=== PATIENT | female | born 1970 | race Caucasian/White ===

== ENCOUNTER 2020-02-18 11:30 | Emergency (ER) | payer BC, SELFPAY ==
[~2020-02-18] VITALS: Ht 160 cm; Wt 80.7 kg
[2020-02-18 11:30] VITALS: BP_SYST 148
[2020-02-18 13:02] VITALS: BP_SYST 124
== END 2020-02-18 13:02 | disposition home or self-care (01) ==
LOC: SED 11:30
DX: R05 Cough (principal); I10 Essential (primary) hypertension; Z88.0 Allergy status to penicillin
CPT/HCPCS: 71045; 99283

== ENCOUNTER 2020-02-20 18:21 | Emergency (ER) | payer BC, SELFPAY ==
[~2020-02-20] VITALS: Ht 160 cm; Wt 79.8 kg
[2020-02-20 18:21] VITALS: BP_SYST 154
[2020-02-20 19:02] VITALS: BP_SYST 154
== END 2020-02-20 19:02 | disposition home or self-care (01) ==
LOC: SED 18:21
DX: U07.1 COVID-19 (principal); F41.9 Anxiety disorder, unspecified; I10 Essential (primary) hypertension; Z88.0 Allergy status to penicillin
CPT/HCPCS: 99283

== ENCOUNTER 2021-07-26 05:58 | Emergency (ER) | payer BC ==
[~2021-07-26] VITALS: Ht 160 cm; Wt 90.7 kg
--- NOTE | 2021-07-26 06:01 | NUR ---
50 YR OLD FEMALE WITH COMPLAINT OF ANXIETY AND HEART PALPITAIONS AFTER CONSUMING A FEW ALCOHOLIC BEVERAGES AT A GREEN PARTY ABOUT 10 HOURS AGO. PT REPORTS RUNNING OUT OF HER HTN MEDICATION LISINOPRIL AND FEELING HER BLOOD PRESSURE GO UP. 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 REPORT GIVEN TO TAN ALONSO.
[2021-07-26 06:05] VITALS: BP_SYST 151
--- NOTE | 2021-07-26 06:21 | NUR ---
Patient placed on cardiac monitors. States that she drank too much last night and now feels like she is having palpatations. No signs of distress or SOB, will continue to monitor.
--- NOTE | 2021-07-26 06:36 | NUR ---
Dr. Rodgers at bedside assessing patient.
[2021-07-26] MEDS ORDERED: KETOROLAC TROMETHAMINE 30 MG VIAL IVP ONE (06:45)
[2021-07-26] MEDS ORDERED: NACL 0.9% 1,000 ML IV ONE (06:45)
[2021-07-26] MEDS ORDERED: LISINOPRIL 10 MG TABLET (PRINIVIL) PO ONE (06:45)
[2021-07-26 07:07] LABS: BASOPHILS # (AUTO) 0.1 K/uL (0.0-0.2); EOSINOPHILS # (AUTO) 0.1 K/uL (0.0-0.4); EOSINOPHILS % (AUTO) 0.8 % (0.0-4.0); HEMATOCRIT 43.1 % (36-48); HEMOGLOBIN 14.4 g/dL (12.0-16.0); LYMPHOCYTES # (AUTO) 3.4 K/uL (1.0-5.5); MEAN CORPUSCULAR HEMOGLOBIN 29 pg (27-31); MEAN CORPUSCULAR HGB CONC 34 % (32-36); MEAN CORPUSCULAR VOLUME 88 fL (79.0-98.0); MONOCYTES # (AUTO) 0.7 K/uL (0.0-1.0); MONOCYTES % (AUTO) 7.1 % (1.7-9.3); NEUTROPHILS # (AUTO) 4.9 K/uL (1.8-7.7); NEUTROPHILS % (AUTO) 54.1 % (40.0-70.0); PLATELET COUNT (AUTO) 275 K/uL (130-430); RED BLOOD CELL COUNT(AUTO) 4.92 MIL/uL (4.2-6.2); RED CELL DISTRIBUTION WIDTH 13.6 % (9.0-15.0); WHITE BLOOD COUNT (AUTO) 9.1 K/uL (4.8-10.8)
--- NOTE | 2021-07-26 07:17 | NUR ---
Report given to TAN Ray
[2021-07-26 07:22] LABS: CREATININE 0.74 mg/dL (0.55-1.30); POTASSIUM 3.7 mmol/L (3.5-5.1)
[2021-07-26 07:28] LABS: ALBUMIN 3.5 g/dL (3.4-4.8); TOTAL BILIRUBIN 0.1 mg/dL (0.0-1.0)
--- NOTE | 2021-07-26 07:54 | NUR ---
a/ox4 vss, pt stated she forgot to give urine, stated she feels better," ready to go home" is outside waiting.
--- NOTE | 2021-07-26 08:24 | NUR ---
a/ox4 vss verbalized understanding ,all questions answered , ambulated with steady gait.
== END 2021-07-26 08:24 | disposition home or self-care (01) ==
LOC: SED 05:58
DX: E86.0 Dehydration (principal); F41.9 Anxiety disorder, unspecified; I10 Essential (primary) hypertension; Z88.0 Allergy status to penicillin
CPT/HCPCS: 36415; 80053; 85025; 93005; 96361; 96374; 99284; J1885; J7030